=== PATIENT | male | born 1960 | race Caucasian/White ===

== ENCOUNTER 2021-11-25 11:46 | Inpatient (IN) | payer OTHER ==
[~2021-11-25 11:46] MED LIST: Iopamidol-370 76% 500 ML 1 ML ONE
[2021-11-25] MEDS ORDERED: Naloxone HCl 2 mg/2 ml Syringe ONE (11:57)
[2021-11-25] MEDS ORDERED: Cefepime 2 GM VIAL ONE (12:12)
[2021-11-25 12:51] LABS: ALT (SGPT) 15 U/L (8-55); AST (SGOT) 42 U/L (5-34); Albumin 3.5 g/dL (3.5-5.0); Alkaline Phosphatase 402 U/L (40-110); Anion Gap 28 mmol/L (10-20); BUN (Urea Nitrogen) 38 mg/dL (8.4-25.7); Bilirubin, Total 1.2 mg/dL (0.2-1.2); Calc. Creatinine Clearance 0 mL/min (70-130); Calcium 8.6 mg/dL (7.8-10.44); Carbon Dioxide 11 mmol/L (22-29); Chloride 96 mmol/L (98-107); Estimated GFR 39; Globulin 3.1 g/dL (2.4-3.5); Glucose 129 mg/dL (70-105); Lipase 43 U/L (8-78); Protein, Total 6.6 g/dL (6.0-8.3); Sodium 130 mmol/L (136-145)
[2021-11-25] MEDS ORDERED: Succinylcholine 200 MG/10 ml SYRINGE FS ONE (12:52)
[2021-11-25] MEDS ORDERED: Ketamine 50 MG/ML (10ML VIAL) ONE (12:52)
[2021-11-25] MEDS ORDERED: EPINEPHrine 1 MG/10 ML Abboject SYRINGE ONE (12:58)
[2021-11-25 13:06] LABS: Hemoglobin 3.8 g/dL (14.0-18.0); Mean Corpuscular Volume 94.4 fL (78.0-98.0); Mean Platelet Volume 9.8 fL (7.4-10.4); Platelet Count 26 thou/uL (130-400); RBC Distribution Width 15.9 % (11.5-14.5); Red Blood Cell (RBC) Count 1.14 mill/uL (4.70-6.10)
[2021-11-25 13:08] LABS: INR-International Normal Ratio 1.3; PTT 44.8 sec (22.9-36.1); Prothrombin Time 15.9 sec (12.0-14.7)
[2021-11-25] MEDS ORDERED: Fentanyl 100 MCG/2 ML VIAL ONE (13:22)
[2021-11-25 13:23] LABS: Anisocytosis SLIGHT = 6-15 cells (100X) (0-5/hpf); Band 10 % (5-11); Eosinophils 2 % (0-10); Lymphocytes 33 % (21-51); MDiff Complete? YES; Metamyelocyte 9 % (0-0); Monocytes 14 % (0-10); Myelocyte 7 % (0-0); Neutrophil 18 % (42-75); Nucleated RBC 16 % (0); Platelet Morphology Comment Appears Decreased; Polychromasia MODERATE = 3-4 cells (100X) (0-2/hpf); Promyelocytes 1 % (0-0); Reactive Lymphocytes 1 % (0-10); Reflex for Review?? YES; Schistocytes SLIGHT = 2-5 cells (100X) (0-1/hpf); White Blood Cell (WBC) Count 16.1 thou/uL (4.8-10.8)
[2021-11-25] MEDS ORDERED: fentaNYL Citrate/PF 2,000 MCG in Sodium Chloride 0.9% 60 ML IV SCH (13:30)
[2021-11-25 13:31] LABS: Analyzer IN Cardio ER; Base Excess -12.8 mEq/L (-2.0 to +3.0); Calcium, Ionized (venous) 1.01 mmol/L (1.16-1.32); Chloride (VBG) 102 mmol/L (98-106); Hemoglobin (Hb) 2.7 g/dL (13.1-17.2); Potassium (VBG) 4.32 mmol/L (3.70-5.30); Sodium 127.4 mmol/L (133-146); pH (venous) 7.38 (7.32-7.43)
[2021-11-25 13:33] LABS: Actual Bicarbonate (HCO3v) 12 mEq/L (22-28)
[2021-11-25 13:39] LABS: SARS-CoV-2 NAA Rapid Test Not Detected (NotDetected)
[2021-11-25] MEDS ORDERED: Octreotide Acetate 500 MCG/ML VIAL ONE (13:46)
[2021-11-25] MEDS ORDERED: Pantoprazole 40 MG VIAL ONE (13:46)
[2021-11-25] MEDS ORDERED: Pantoprazole 80 MG, Admixture Fee 1 EACH in Sodium Chloride 0.9% 100 ML IVPB SCH (14:00)
[2021-11-25] MEDS ORDERED: Octreotide Acetate 1,250 MCG in Sodium Chloride 0.9% 250 ML 250 ML IVPB SCH ×2 (14:00→15:24)
[2021-11-25 14:03] LABS: CKMB 15.3 ng/mL (0-6.6)
[2021-11-25] MEDS ORDERED: Lorazepam (BATCHED) 2 MG/ML SYR ONE (14:06)
[2021-11-25 14:28] LABS: Actual Bicarbonate (HCO3a) 15.7 mEq/L (22-28); Analyzer IN Cardio ER; CO2 Tension 28.8 mmHg (35.0-45.0); Calcium, Ionized (arterial) 1.01 mmol/L (1.12-1.30); Hemoglobin (Hb) 6.1 g/dL (14.0-18.0); Potassium - ABG Lab 4.27 mmol/L (3.70-5.30); pH, Arterial 7.35 (7.35-7.45)
[2021-11-25 14:31] LABS: O2 Tension (PaO2), arterial 510.8 mmHg (80.0-100.0); Puncture Site LBA
[2021-11-25 14:56] LABS: Bilirubin Negative (Negative); Blood, Urine Negative (Negative); Clarity Clear (Clear); Glucose, Urine (Dipstick) Normal (Negative); Ketone, Urine Negative (Negative); Leukocyte Negative Leu/uL (Negative); Nitrite Negative (Negative); Protein, Urine (Dipstick) 20 mg/dL (Neg-Trace); Specific Gravity, Urine 1.029 (1.002-1.036); pH, Urine 5.5 (5.0-9.0)
[2021-11-25] MEDS ORDERED: Levofloxacin 500 mg/D5W 750 MG in Premix Bag 1 BAG IVPB SCH (15:24)
[2021-11-25] MEDS ORDERED: Pantoprazole 80 MG in Sodium Chloride 0.9% 100 ML IVPB SCH ×2 (15:24→16:15)
[2021-11-25] MEDS ORDERED: Acetaminophen 325 MG TAB PO PRN (15:24)
[2021-11-25] MEDS ORDERED: Bisacodyl 5 MG TAB PO PRN (15:24)
[2021-11-25] MEDS ORDERED: Ondansetron PF 4 MG/2 ML Vial IVP PRN (15:24)
[2021-11-25] MEDS ORDERED: Electrolyte Replacement Protocol 1 EACH IVPB SCH (15:24)
[2021-11-25 15:56] LABS: Mean Corpuscular HGB CONC 34.4 g/dL (32.0-36.0); Mean Corpuscular Hemoglobin 31.9 pg (27.0-31.0); Mean Corpuscular Volume 92.6 fL (78.0-98.0); Mean Platelet Volume 10.1 fL (7.4-10.4); Platelet Count 13 thou/uL (130-400); RBC Distribution Width 13.8 % (11.5-14.5); Red Blood Cell (RBC) Count 2.18 mill/uL (4.70-6.10); White Blood Cell (WBC) Count 10.8 thou/uL (4.8-10.8)
[2021-11-25] MEDS: Nicotine 21 MG PATCH TD SCH (15:57)
[2021-11-25] MEDS: Sodium Chloride 0.9% 1,000 ML IV SCH (15:58)
[2021-11-25 16:25] LABS: Troponin I 5.691 ng/mL (< 0.028)
[2021-11-25 18:25] LABS: Amphetamine Not Detected (NotDetected); Barbiturates Screen Not Detected (NotDetected); Benzodiazepine Screen Detected (NotDetected); Cocaine Metabolite Screen Not Detected (NotDetected); Methadone Not Detected (NotDetected); Methamphetamine Not Detected (NotDetected); Opiate Screen Not Detected (NotDetected); Oxycodone Screen Not Detected (NotDetected); Phencyclidine (PCP) Not Detected (NotDetected); THC/Cannabinoid Screen Detected (NotDetected); Tricyclic Screen Not Detected (NotDetected)
[2021-11-25 18:51] LABS: Lactic Acid 2.2 mmol/L (0.5-2.2)
[2021-11-25 19:02] LABS: Critical Call Chem Troponin I RESULT DECREASING; Troponin I 5.532 ng/mL (< 0.028)
[2021-11-25] MEDS ORDERED: Vancomycin Sliding Scale IVPB PRN (19:51)
[2021-11-25] MEDS ORDERED: Vancomycin 1.5 GRAM/300 ML BAG 1.5 GM in Premix Bag 1 BAG IVPB SCH (20:00)
[2021-11-25] MEDS: Acetaminophen 650 MG Suppository PR PRN (20:41)
[2021-11-25] MEDS ORDERED: Vancomycin 1 GM in Premix Bag 1 BAG IVPB SCH (21:00)
[2021-11-25] MEDS ORDERED: Cefepime 2 GM in Sodium Chloride 0.9% 100 ML IVPB SCH (21:00)
[2021-11-25] MEDS ORDERED: Famotidine 20 MG TAB PO SCH (21:00)
[2021-11-25 21:15] LABS: Hemoglobin 7.8 g/dL (14.0-18.0); Mean Corpuscular HGB CONC 35.7 g/dL (32.0-36.0); Mean Corpuscular Hemoglobin 30.9 pg (27.0-31.0); Mean Corpuscular Volume 86.6 fL (78.0-98.0); Mean Platelet Volume 9.1 fL (7.4-10.4); Platelet Count 53 thou/uL (130-400); RBC Distribution Width 17.9 % (11.5-14.5); Red Blood Cell (RBC) Count 2.51 mill/uL (4.70-6.10); White Blood Cell (WBC) Count 9.1 thou/uL (4.8-10.8)
[2021-11-26] MEDS: Cefepime 1 GM in Sodium Chloride 0.9% 100 ML IVPB SCH ×2 (00:15→12:36)
[2021-11-26] MEDS ORDERED: Fentanyl CADD 100 ML ONE ×2 (00:18→11:36)
[2021-11-26] MEDS: Fentanyl CADD 100 ML IV SCH ×2 (00:19→12:30)
[2021-11-26 00:39] LABS: Hemoglobin 7.6 g/dL (14.0-18.0); Mean Corpuscular HGB CONC 37.1 g/dL (32.0-36.0); Mean Corpuscular Hemoglobin 32.2 pg (27.0-31.0); Mean Platelet Volume 8.8 fL (7.4-10.4); Platelet Count 42 thou/uL (130-400); RBC Distribution Width 18.4 % (11.5-14.5); Red Blood Cell (RBC) Count 2.36 mill/uL (4.70-6.10); White Blood Cell (WBC) Count 9.4 thou/uL (4.8-10.8)
[2021-11-26] MEDS: Sodium Chloride 0.9% 1,000 ML IV SCH ×3 (02:00→21:45)
[2021-11-26 04:20] LABS: Fibrinogen 394 mg/dL (253-463); Lactic Acid 1.1 mmol/L (0.5-2.2)
[2021-11-26 04:22] LABS: INR-International Normal Ratio 1.2; PTT 41.2 sec (22.9-36.1); Prothrombin Time 15.2 sec (12.0-14.7)
[2021-11-26 04:26] LABS: ALT (SGPT) 29 U/L (8-55); AST (SGOT) 70 U/L (5-34); Alkaline Phosphatase 342 U/L (40-110); Anion Gap 15 mmol/L (10-20); BUN (Urea Nitrogen) 33 mg/dL (8.4-25.7); Bilirubin, Total 1.6 mg/dL (0.2-1.2); Calc. Creatinine Clearance 52 mL/min (70-130); Calcium 7.8 mg/dL (7.8-10.44); Carbon Dioxide 18 mmol/L (22-29); Chloride 106 mmol/L (98-107); Estimated GFR 58; Globulin 2.8 g/dL (2.4-3.5); Glucose 87 mg/dL (70-105); Magnesium 2.3 mg/dL (1.6-2.6); Potassium 4.6 mmol/L (3.5-5.1); Protein, Total 5.8 g/dL (6.0-8.3); Sodium 134 mmol/L (136-145)
[2021-11-26 04:32] LABS: Band 11 % (5-11); Elliptocytes SLIGHT = 2-5 cells (100X) (0-1/hpf); Eosinophils 4 % (0-10); Hemoglobin 7.3 g/dL (14.0-18.0); Lymphocytes 14 % (21-51); MDiff Complete? YES; Mean Corpuscular HGB CONC 35.5 g/dL (32.0-36.0); Mean Corpuscular Hemoglobin 30.7 pg (27.0-31.0); Mean Corpuscular Volume 86.6 fL (78.0-98.0); Mean Platelet Volume 9.6 fL (7.4-10.4); Metamyelocyte 6 % (0-0); Monocytes 11 % (0-10); Myelocyte 4 % (0-0); Neutrophil 47 % (42-75); Nucleated RBC 7 % (0); Platelet Count 38 thou/uL (130-400); Platelet Morphology Comment Appears Decreased; RBC Distribution Width 18.6 % (11.5-14.5); Red Blood Cell (RBC) Count 2.36 mill/uL (4.70-6.10); Tear Drops SLIGHT = 2-5 cells (100X) (0-1/hpf); White Blood Cell (WBC) Count 10.3 thou/uL (4.8-10.8)
[2021-11-26 04:34] LABS: Platelet Count 38 thou/uL (130-400)
[2021-11-26 04:42] LABS: D-Dimer Test Greater than 20.00 *mcg/mL (0.27-0.43)
[2021-11-26] MEDS ORDERED: Pantoprazole 80 MG, Admixture Fee 1 EACH in Sodium Chloride 0.9% 100 ML IVPB SCH (06:45)
[2021-11-26 07:44] LABS: Platelet Count 36 thou/uL (130-400)
[2021-11-26 07:48] LABS: Reticulocyte Count 2.2 % (0.5-1.5)
[2021-11-26 08:10] LABS: Actual Bicarbonate (HCO3a) 17.8 mEq/L (22-28); CO2 Tension 37.2 mmHg (35.0-45.0); Calcium, Ionized (arterial) 1.07 mmol/L (1.12-1.30); Carboxyhemoglobin (COHb) 1.9 gm% (0.0-3.0); Hemoglobin (Hb) 7.4 g/dL (14.0-18.0); O2 Tension (PaO2), arterial 103.6 mmHg (80.0-100.0); Potassium - ABG Lab 4.57 mmol/L (3.70-5.30); Puncture Site RRA
[2021-11-26 08:52] LABS: Hemoglobin 7.6 g/dL (14.0-18.0); Mean Corpuscular HGB CONC 34.5 g/dL (32.0-36.0); Mean Corpuscular Hemoglobin 30.1 pg (27.0-31.0); Mean Corpuscular Volume 87.2 fL (78.0-98.0); Mean Platelet Volume 10.6 fL (7.4-10.4); Platelet Count 32 thou/uL (130-400); RBC Distribution Width 18.9 % (11.5-14.5); Red Blood Cell (RBC) Count 2.51 mill/uL (4.70-6.10)
[2021-11-26] MEDS ORDERED: Dextrose 5% in Water 1,000 ML IV PRN (09:15)
[2021-11-26 10:21] LABS: Hemoglobin 7.4 g/dL (14.0-18.0); Mean Corpuscular HGB CONC 35.4 g/dL (32.0-36.0); Mean Corpuscular Hemoglobin 30.9 pg (27.0-31.0); Mean Corpuscular Volume 87.4 fL (78.0-98.0); Mean Platelet Volume 10.6 fL (7.4-10.4); Platelet Count 35 thou/uL (130-400); RBC Distribution Width 18.8 % (11.5-14.5)
[2021-11-26] MEDS ORDERED: Propofol BOLUS 1,000 MG/100 ML VIAL IV PRN (11:00)
[2021-11-26] MEDS ORDERED: Fentanyl BOLUS 250 ML IVPB PRN (11:00)
[2021-11-26] MEDS ORDERED: Morphine 4 MG/ML VIAL SLOW IVP PRN (11:00)
[2021-11-26 11:11] LABS: HIV (1/2) Antibody/Antigen Non-Reactive (NonReactive); HIV 1/2 INDEX 0.25 S/CO (<1.00)
[2021-11-26] MEDS: Propofol 1,000 MG/100 ML VIAL IV PRN (12:31)
[2021-11-26] MEDS: Nicotine 21 MG PATCH TD SCH (12:32)
[2021-11-26] MEDS: Dextrose 50% Abboject 50 ML SYRINGE IVP PRN (16:32)
[2021-11-26 17:12] LABS: Mean Corpuscular Hemoglobin 30.2 pg (27.0-31.0); Mean Corpuscular Volume 88.7 fL (78.0-98.0); Mean Platelet Volume 10.7 fL (7.4-10.4); Platelet Count 31 thou/uL (130-400); RBC Distribution Width 19.3 % (11.5-14.5); Red Blood Cell (RBC) Count 2.66 mill/uL (4.70-6.10); White Blood Cell (WBC) Count 16.2 thou/uL (4.8-10.8)
[2021-11-26] MEDS: Pantoprazole 40 MG VIAL IVP SCH (21:46)
[2021-11-26] MEDS: Vancomycin 1.5 GRAM/300 ML BAG 1.5 GM in Premix Bag 1 BAG IVPB SCH (21:54)
[2021-11-27] MEDS: Cefepime 1 GM in Sodium Chloride 0.9% 100 ML IVPB SCH ×2 (00:47→11:15)
[2021-11-27] MEDS: Fentanyl CADD 100 ML IV SCH ×2 (01:37→15:37)
[2021-11-27 05:14] LABS: ALT (SGPT) 20 U/L (8-55); AST (SGOT) 44 U/L (5-34); Albumin 2.6 g/dL (3.5-5.0); Alkaline Phosphatase 325 U/L (40-110); Anion Gap 15 mmol/L (10-20); BUN (Urea Nitrogen) 28 mg/dL (8.4-25.7); Bilirubin, Total 0.9 mg/dL (0.2-1.2); Calc. Creatinine Clearance 62 mL/min (70-130); Carbon Dioxide 18 mmol/L (22-29); Chloride 112 mmol/L (98-107); Estimated GFR 69; Globulin 2.8 g/dL (2.4-3.5); Glucose 80 mg/dL (70-105); Potassium 4.7 mmol/L (3.5-5.1); Protein, Total 5.4 g/dL (6.0-8.3); Sodium 140 mmol/L (136-145)
[2021-11-27 05:15] LABS: Reticulocyte Count 2.4 % (0.5-1.5)
[2021-11-27 05:17] LABS: Platelet Count 22 thou/uL (130-400)
[2021-11-27 05:18] LABS: Hemoglobin 6.6 g/dL (14.0-18.0); Mean Corpuscular HGB CONC 33.7 g/dL (32.0-36.0); Mean Corpuscular Hemoglobin 30.2 pg (27.0-31.0); Mean Corpuscular Volume 89.6 fL (78.0-98.0); Mean Platelet Volume 11.1 fL (7.4-10.4); RBC Distribution Width 19.6 % (11.5-14.5); Red Blood Cell (RBC) Count 2.18 mill/uL (4.70-6.10); White Blood Cell (WBC) Count 10.3 thou/uL (4.8-10.8)
[2021-11-27 05:23] LABS: Band 18 % (5-11); Eosinophils 1 % (0-10); Hypochromia SLIGHT = 6-15 cells (100X) (0-5/hpf); Lymphocytes 40 % (21-51); MDiff Complete? YES; Metamyelocyte 1 % (0-0); Monocytes 11 % (0-10); Neutrophil 29 % (42-75); Nucleated RBC 9 % (0); Platelet Morphology Comment Appears Decreased
[2021-11-27] MEDS: Propofol 1,000 MG/100 ML VIAL IV PRN ×2 (06:29→11:59)
[2021-11-27 07:34] LABS: Actual Bicarbonate (HCO3a) 18.1 mEq/L (22-28); Base Excess (BEa) -8.1 mEq/L (-2.0 to +3.0); CO2 Tension 39.6 mmHg (35.0-45.0); Calcium, Ionized (arterial) 1.17 mmol/L (1.12-1.30); Carboxyhemoglobin (COHb) 0.6 gm% (0.0-3.0); Hemoglobin (Hb) 8.7 g/dL (14.0-18.0); O2 Tension (PaO2), arterial 79.8 mmHg (80.0-100.0); Potassium - ABG Lab 4.54 mmol/L (3.70-5.30); pH, Arterial 7.28 (7.35-7.45)
[2021-11-27 07:36] LABS: Puncture Site RRA
[2021-11-27] MEDS: Sodium Chloride 0.9% 1,000 ML IV SCH (08:31)
[2021-11-27] MEDS: Dextrose 50% Abboject 50 ML SYRINGE IVP PRN ×2 (08:33→21:30)
[2021-11-27] MEDS: Pantoprazole 40 MG VIAL IVP SCH ×2 (08:52→21:20)
[2021-11-27] MEDS ORDERED: Folic Acid 1 MG TAB PER TUBE SCH (09:00)
[2021-11-27] MEDS ORDERED: Dextrose 5 %-0.45 % NaCl 1,000 ML IV SCH (09:15)
[2021-11-27] MEDS ORDERED: Iopamidol-370 76% 500 ML 1 ML ONE (13:32)
[2021-11-27] MEDS ORDERED: Dexmedetomidine In 0.9 % NaCl 100 ML IVPB SCH (15:30)
[2021-11-27] MEDS ORDERED: Fentanyl CADD 100 ML ONE (15:34)
[2021-11-27] MEDS: Nicotine 21 MG PATCH TD SCH (15:43)
[2021-11-27] MEDS: Multivitamins, Adult 10 ML in Dextrose 5 %-0.45 % NaCl 1,000 ML IV SCH (15:52)
[2021-11-27 20:53] LABS: Vancomycin, Trough 12.9 ug/mL
[2021-11-27] MEDS: Vancomycin 1 GM in Premix Bag 1 BAG IVPB SCH (23:03)
[2021-11-27 23:14] LABS: Glucose POC Confirmation 163 mg/dl (70-105)
[2021-11-28] MEDS: Cefepime 1 GM in Sodium Chloride 0.9% 100 ML IVPB SCH ×2 (00:20→11:22)
[2021-11-28] MEDS: Midazolam HCl 2 mg/2 ml Vial SLOW IVP PRN ×2 (04:22→20:23)
[2021-11-28] MEDS: Multivitamins, Adult 10 ML in Dextrose 5 %-0.45 % NaCl 1,000 ML IV SCH ×2 (05:16→16:11)
[2021-11-28 05:44] LABS: ALT (SGPT) 15 U/L (8-55); AST (SGOT) 27 U/L (5-34); Albumin 2.3 g/dL (3.5-5.0); Alkaline Phosphatase 278 U/L (40-110); Anion Gap 13 mmol/L (10-20); BUN (Urea Nitrogen) 21 mg/dL (8.4-25.7); Bilirubin, Total 0.9 mg/dL (0.2-1.2); Calc. Creatinine Clearance 72 mL/min (70-130); Calcium 8.1 mg/dL (7.8-10.44); Carbon Dioxide 20 mmol/L (22-29); Chloride 111 mmol/L (98-107); Estimated GFR 79; Globulin 2.6 g/dL (2.4-3.5); Glucose 117 mg/dL (70-105); Phosphorus 4.1 mg/dL (2.3-4.7); Potassium 4.3 mmol/L (3.5-5.1); Protein, Total 4.9 g/dL (6.0-8.3); Sodium 140 mmol/L (136-145)
[2021-11-28 05:45] LABS: Fibrinogen 519 mg/dL (253-463)
[2021-11-28 05:47] LABS: INR-International Normal Ratio 1.2; PTT 38.5 sec (22.9-36.1); Prothrombin Time 15.2 sec (12.0-14.7)
[2021-11-28 06:22] LABS: D-Dimer Test Greater than 20.00 *mcg/mL (0.27-0.43)
[2021-11-28] MEDS ORDERED: Fentanyl CADD 100 ML ONE (06:27)
[2021-11-28] MEDS: Fentanyl CADD 100 ML IV SCH (06:34)
[2021-11-28] MEDS: Vancomycin 1.5 GRAM/300 ML BAG 1.5 GM in Premix Bag 1 BAG IVPB SCH (07:00)
[2021-11-28 07:40] LABS: Hemoglobin 7.4 g/dL (14.0-18.0); Mean Corpuscular HGB CONC 33.5 g/dL (32.0-36.0); Mean Corpuscular Hemoglobin 30.1 pg (27.0-31.0); Mean Corpuscular Volume 89.7 fL (78.0-98.0); Mean Platelet Volume 14.3 fL (7.4-10.4); Platelet Count 14 thou/uL (130-400); RBC Distribution Width 18.8 % (11.5-14.5); Red Blood Cell (RBC) Count 2.44 mill/uL (4.70-6.10); White Blood Cell (WBC) Count 9.3 thou/uL (4.8-10.8)
[2021-11-28 07:54] LABS: Band 26 % (5-11); Eosinophils 3 % (0-10); Lymphocytes 35 % (21-51); MDiff Complete? YES; Metamyelocyte 9 % (0-0); Monocytes 9 % (0-10); Myelocyte 7 % (0-0); Neutrophil 11 % (42-75); Nucleated RBC 14 % (0); Platelet Morphology Comment Appears Decreased; Polychromasia MODERATE = 3-4 cells (100X) (0-2/hpf); Schistocytes SLIGHT = 2-5 cells (100X) (0-1/hpf)
[2021-11-28 07:56] LABS: Platelet Count 14 thou/uL (130-400)
[2021-11-28] MEDS ORDERED: NOREPINEPHRINE 8 MG/250 ML-D5W 250 ML IVPB SCH (08:30)
[2021-11-28] MEDS ORDERED: Scopolamine 1.5 mg/72 hour Patch TD SCH (08:30)
[2021-11-28] MEDS: NOREPINEPHRINE 8 MG/250 ML-D5W 250 ML IVPB PRN ×2 (08:41→22:03)
[2021-11-28] MEDS: Pantoprazole 40 MG VIAL IVP SCH ×2 (08:42→20:11)
[2021-11-28] MEDS: Propofol 1,000 MG/100 ML VIAL IV PRN (08:44)
[2021-11-28] MEDS: Vancomycin 1 GM in Premix Bag 1 BAG IVPB SCH ×2 (08:47→22:02)
[2021-11-28] MEDS: Dextrose 5 %-0.45 % NaCl 1,000 ML IV SCH (11:19)
[2021-11-28 13:09] LABS: Potassium, Urine 18.2 mmol/L; Sodium, Urine Less than 20 mmol/L (Not Available)
[2021-11-28 13:13] LABS: Creatinine, Urine 97.78 mg/dL (63-166); Glucose, Urine (Quantitative) Less than 5 mg/dl (1-15)
[2021-11-28] MEDS: Nicotine 21 MG PATCH TD SCH (16:11)
[2021-11-28 18:37] LABS: CMV DNA-PCR Test Positive < 200 IU/mL (Negative)
[2021-11-29] MEDS: Cefepime 1 GM in Sodium Chloride 0.9% 100 ML IVPB SCH ×2 (01:01→11:44)
[2021-11-29] MEDS ORDERED: Fentanyl CADD 100 ML ONE (01:48)
[2021-11-29] MEDS: Fentanyl CADD 100 ML IV SCH (01:50)
[2021-11-29] MEDS: Midazolam HCl 2 mg/2 ml Vial SLOW IVP PRN ×2 (02:54→15:41)
[2021-11-29 04:38] LABS: ALT (SGPT) 13 U/L (8-55); AST (SGOT) 25 U/L (5-34); Albumin 2.3 g/dL (3.5-5.0); Alkaline Phosphatase 267 U/L (40-110); Anion Gap 12 mmol/L (10-20); BUN (Urea Nitrogen) 16 mg/dL (8.4-25.7); Bilirubin, Total 0.9 mg/dL (0.2-1.2); Calc. Creatinine Clearance 78 mL/min (70-130); Calcium 8.4 mg/dL (7.8-10.44); Carbon Dioxide 21 mmol/L (22-29); Chloride 111 mmol/L (98-107); Estimated GFR 86; Globulin 2.8 g/dL (2.4-3.5); Glucose 117 mg/dL (70-105); Magnesium 1.9 mg/dL (1.6-2.6); Potassium 4.1 mmol/L (3.5-5.1); Protein, Total 5.1 g/dL (6.0-8.3); Sodium 140 mmol/L (136-145)
[2021-11-29 04:56] LABS: Hemoglobin 7.1 g/dL (14.0-18.0); Mean Corpuscular HGB CONC 36.4 g/dL (32.0-36.0); Mean Corpuscular Hemoglobin 32.6 pg (27.0-31.0); Mean Corpuscular Volume 89.7 fL (78.0-98.0); Mean Platelet Volume 14.6 fL (7.4-10.4); Platelet Count 8 thou/uL (130-400); RBC Distribution Width 18.4 % (11.5-14.5); Red Blood Cell (RBC) Count 2.16 mill/uL (4.70-6.10)
[2021-11-29 05:10] LABS: Band 26 % (5-11); Differential Comment Blast-Like Cell(s); Eosinophils 3 % (0-10); Lymphocytes 23 % (21-51); MDiff Complete? YES; Metamyelocyte 2 % (0-0); Monocytes 11 % (0-10); Myelocyte 7 % (0-0); Neutrophil 26 % (42-75); Nucleated RBC 13 % (0); Polychromasia MODERATE = 3-4 cells (100X) (0-2/hpf); White Blood Cell (WBC) Count 9.3 thou/uL (4.8-10.8)
[2021-11-29] MEDS: Propofol 1,000 MG/100 ML VIAL IV PRN (05:35)
[2021-11-29] MEDS: Dextrose 5 %-0.45 % NaCl 1,000 ML IV SCH ×2 (06:14→16:19)
[2021-11-29] MEDS: Multivitamins, Adult 10 ML in Dextrose 5 %-0.45 % NaCl 1,000 ML IV SCH ×2 (07:40→21:00)
[2021-11-29] MEDS: Pantoprazole 40 MG VIAL IVP SCH ×2 (07:46→21:00)
[2021-11-29 08:33] LABS: Glucose 102 mg/dL (70-105)
[2021-11-29 09:07] LABS: Vancomycin, Trough 17.8 ug/mL
[2021-11-29] MEDS: Vancomycin 1 GM in Premix Bag 1 BAG IVPB SCH (10:42)
[2021-11-29 13:13] LABS: Glucose 128 mg/dL (70-105)
[2021-11-29 14:22] VITALS: BMI 25.0
[2021-11-29] MEDS: Nicotine 21 MG PATCH TD SCH (16:22)
[2021-11-29 16:23] LABS: Glucose 87 mg/dL (70-105)
[2021-11-29] MEDS: NOREPINEPHRINE 8 MG/250 ML-D5W 250 ML IVPB PRN (16:44)
[2021-11-29 18:36] LABS: Anion Gap 14 mmol/L (10-20); BUN (Urea Nitrogen) 15 mg/dL (8.4-25.7); Calc. Creatinine Clearance 88 mL/min (70-130); Calcium 8.4 mg/dL (7.8-10.44); Carbon Dioxide 18 mmol/L (22-29); Chloride 113 mmol/L (98-107); Estimated GFR 98; Glucose 76 mg/dL (70-105); Potassium 4.3 mmol/L (3.5-5.1); Sodium 141 mmol/L (136-145)
[2021-11-29 20:27] LABS: Glucose 73 mg/dL (70-105)
[2021-11-29] MEDS: Acetaminophen 650 MG Suppository PR PRN (22:50)
[2021-11-30] MEDS: Cefepime 1 GM in Sodium Chloride 0.9% 100 ML IVPB SCH ×2 (00:03→12:43)
[2021-11-30] MEDS: Midazolam HCl 2 mg/2 ml Vial SLOW IVP PRN ×5 (00:03→17:53)
[2021-11-30 01:00] LABS: Glucose 72 mg/dL (70-105)
[2021-11-30] MEDS ORDERED: Fentanyl CADD 100 ML ONE (01:03)
[2021-11-30] MEDS: Fentanyl CADD 100 ML IV SCH (01:04)
[2021-11-30 02:16] LABS: Hemoglobin 6.2 g/dL (14.0-18.0); Mean Corpuscular HGB CONC 33.9 g/dL (32.0-36.0); Mean Corpuscular Hemoglobin 30.2 pg (27.0-31.0); Mean Corpuscular Volume 88.8 fL (78.0-98.0); RBC Distribution Width 18.5 % (11.5-14.5); Red Blood Cell (RBC) Count 2.05 mill/uL (4.70-6.10)
[2021-11-30 02:22] LABS: Anion Gap 12 mmol/L (10-20); BUN (Urea Nitrogen) 15 mg/dL (8.4-25.7); Calc. Creatinine Clearance 73 mL/min (70-130); Carbon Dioxide 20 mmol/L (22-29); Chloride 111 mmol/L (98-107); Potassium 3.8 mmol/L (3.5-5.1); Sodium 139 mmol/L (136-145)
[2021-11-30 02:23] LABS: ALT (SGPT) 15 U/L (8-55); AST (SGOT) 32 U/L (5-34); Albumin 2.2 g/dL (3.5-5.0); Alkaline Phosphatase 235 U/L (40-110); Bilirubin, Total 1.1 mg/dL (0.2-1.2); Calcium 8.5 mg/dL (7.8-10.44); Estimated GFR 78; Globulin 2.7 g/dL (2.4-3.5); Glucose 171 mg/dL (70-105); Protein, Total 4.9 g/dL (6.0-8.3)
[2021-11-30 02:28] LABS: Anisocytosis MODERATE=16-30 cells (100X) (0-5/hpf); Band 24 % (5-11); Differential Comment Blast-Like Cell(s); Eosinophils 8 % (0-10); Lymphocytes 28 % (21-51); MDiff Complete? YES; Mean Platelet Volume 11.8 fL (7.4-10.4); Metamyelocyte 1 % (0-0); Monocytes 12 % (0-10); Myelocyte 5 % (0-0); Neutrophil 16 % (42-75); Nucleated RBC 19 % (0); Platelet Count 33 thou/uL (130-400); Platelet Morphology Comment Appears Decreased; Polychromasia SLIGHT = 2-3 cells (100X) (0-2/hpf); Schistocytes SLIGHT = 2-5 cells (100X) (0-1/hpf); White Blood Cell (WBC) Count 9.5 thou/uL (4.8-10.8)
[2021-11-30] MEDS: Propofol 1,000 MG/100 ML VIAL IV PRN (03:27)
[2021-11-30 04:31] LABS: Glucose 86 mg/dL (70-105)
[2021-11-30] MEDS: Dextrose 5 %-0.45 % NaCl 1,000 ML IV SCH (06:20)
[2021-11-30 08:21] LABS: Glucose 109 mg/dL (70-105)
[2021-11-30] MEDS: Pantoprazole 40 MG VIAL IVP SCH (09:32)
[2021-11-30] MEDS: NOREPINEPHRINE 8 MG/250 ML-D5W 250 ML IVPB PRN (10:48)
[2021-11-30] MEDS: Multivitamins, Adult 10 ML in Dextrose 5 %-0.45 % NaCl 1,000 ML IV SCH (10:48)
[2021-11-30 10:56] LABS: Hemoglobin 7.8 g/dL (14.0-18.0); Mean Corpuscular HGB CONC 34.8 g/dL (32.0-36.0); Mean Corpuscular Hemoglobin 30.6 pg (27.0-31.0); Mean Corpuscular Volume 87.9 fL (78.0-98.0); Mean Platelet Volume 11.8 fL (7.4-10.4); Platelet Count 25 thou/uL (130-400); RBC Distribution Width 17.6 % (11.5-14.5); Red Blood Cell (RBC) Count 2.55 mill/uL (4.70-6.10); White Blood Cell (WBC) Count 13.3 thou/uL (4.8-10.8)
[2021-11-30 11:10] LABS: Glucose 102 mg/dL (70-105)
[2021-11-30 12:26] VITALS: TEMP 98.5
[2021-11-30 14:18] VITALS: BP 102/55
[2021-11-30] MEDS: Nicotine 21 MG PATCH TD SCH (16:12)
[2021-11-30] MEDS: Morphine 4 MG/ML VIAL SLOW IVP PRN ×3 (16:17→17:54)
== END 2021-11-30 18:45 | disposition expired | DRG 870 ==
LOC: ERS 11:46 → CCU 14:32
PROVIDERS: ADMIT Internal Medicine; ATTEND Family Medicine
PROC: 5A1955Z Respiratory Ventilation, Greater than 96 Consecutive Hours (ICD-10-PCS; 2021-11-25)
PROC: 0BH18EZ Insertion of Endotracheal Airway into Trachea, Via Natural or Artificial Opening Endoscopic (ICD-10-PCS; 2021-11-25)
PROC: 3E03329 Introduction of Other Anti-infective into Peripheral Vein, Percutaneous Approach (ICD-10-PCS; 2021-11-25)
PROC: 0D9670Z Drainage of Stomach with Drainage Device, Via Natural or Artificial Opening (ICD-10-PCS; 2021-11-25)
PROC: 30233R1 Transfusion of Nonautologous Platelets into Peripheral Vein, Percutaneous Approach (ICD-10-PCS; 2021-11-25)
PROC: 30233N1 Transfusion of Nonautologous Red Blood Cells into Peripheral Vein, Percutaneous Approach (ICD-10-PCS; 2021-11-25)
PROC: 0W3P8ZZ Control Bleeding in Gastrointestinal Tract, Via Natural or Artificial Opening Endoscopic (ICD-10-PCS; principal; 2021-11-26)
PROC: 3E033XZ Introduction of Vasopressor into Peripheral Vein, Percutaneous Approach (ICD-10-PCS; 2021-11-28)
DX: A41.9 Sepsis, unspecified organism (principal); D65 Disseminated intravascular coagulation [defibrination syndrome]; G93.41 Metabolic encephalopathy; J96.01 Acute respiratory failure with hypoxia; I21.A1 Myocardial infarction type 2; Z66 Do not resuscitate; Z51.5 Encounter for palliative care; K31.82 Dieulafoy lesion (hemorrhagic) of stomach and duodenum; E87.2 Acidosis; N17.9 Acute kidney failure, unspecified; D62 Acute posthemorrhagic anemia; K55.1 Chronic vascular disorders of intestine; N13.30 Unspecified hydronephrosis; J90 Pleural effusion, not elsewhere classified; D61.818 Other pancytopenia; C34.90 Malignant neoplasm of unspecified part of unspecified bronchus or lung; C78.7 Secondary malignant neoplasm of liver and intrahepatic bile duct; C79.70 Secondary malignant neoplasm of unspecified adrenal gland; C79.51 Secondary malignant neoplasm of bone; G89.29 Other chronic pain; R65.20 Severe sepsis without septic shock; R91.8 Other nonspecific abnormal finding of lung field; F17.210 Nicotine dependence, cigarettes, uncomplicated; R57.1 Hypovolemic shock; N18.2 Chronic kidney disease, stage 2 (mild); K29.80 Duodenitis without bleeding; E16.2 Hypoglycemia, unspecified; Z20.822 Contact with and (suspected) exposure to COVID-19; Z78.1 Physical restraint status; Z79.891 Long term (current) use of opiate analgesic; Z87.81 Personal history of (healed) traumatic fracture
CPT/HCPCS: 31500; 36415; 36416; 36430; 36600; 70450; 71045; 71260; 71275; 74174; 74177; 80053; 80202; 80306; 81003; 82105; 82140; 82378; 82533; 82553; 82570; 82805; 82945; 82947; 83010; 83605; 83615; 83690; 83735; 83935; 84100; 84133; 84300; 84439; 84443; 84484; 85025; 85046; 85049; 85060; 85300; 85362; 85379; 85384; 85610; 85730; 86850; 86900; 86901; 87040; 87081; 87086; 87389; 87497; 93005; 93306; 94002; 94003; C9113; J0171; J0692; J1956; J2060; J2250; J2270; J2310; J2354; J2704; J3010; J3370; J3490; J7042; J7050; J7999; P9016; P9035; Q9967